=== PATIENT | male | born 1945 | race Caucasian/White ===

== ENCOUNTER 2017-10-26 06:00 | Outpatient (CLI) | payer OTHER ==
[~2017-10-26] VITALS: Ht 182.9 cm; Wt 98.9 kg
[2017-10-26] MEDS ORDERED: METO-333 PO (13:08)
[2017-10-26] MEDS ORDERED: IPRA4AER IH (13:08)
[2017-10-26] MEDS ORDERED: CLOP75TA28 PO (13:08)
[2017-10-26] MEDS ORDERED: DEXT15CA28 PO (13:08)
[2017-10-26] MEDS ORDERED: INSU100I29 SQ (13:08)
[2017-10-26] MEDS ORDERED: AMLO10TA2 PO (13:08)
[2017-10-26] MEDS ORDERED: INSU100I14 SQ (13:08)
[2017-10-26] MEDS ORDERED: ISOS20TA73 PO (13:08)
[2017-10-26] MEDS ORDERED: PARO40TA3 PO (13:08)
[2017-10-26] MEDS ORDERED: CHOL10003 PO (13:08)
[2017-10-26] MEDS ORDERED: FURO40TA4 PO (13:08)
[2017-10-26] MEDS ORDERED: FERR324T4 PO (13:08)
[2017-10-26] MEDS ORDERED: ASPI-586 PO (13:08)
[2017-10-30] MEDS ORDERED: ACHD5005 PO (15:11)
== END 2017-10-26 13:31 ==
LOC: PREOP 06:00
PROVIDERS: ATTEND Surgery
DX: Z01.818 Encounter for other preprocedural examination (principal)

== ENCOUNTER 2017-10-30 11:58 | Day surgery (SDC) | payer OTHER ==
[~2017-10-30] VITALS: Ht 182.9 cm; Wt 98.9 kg
[~2017-10-30 11:58] MED LIST: AMLO10TA2 PO; ASPI-586 PO; CHOL10003 PO; CLOP75TA28 PO; DEXT15CA28 PO; FERR324T4 PO; FURO40TA4 PO; INSU100I14 SQ; INSU100I29 SQ; IPRA4AER IH; ISOS20TA73 PO; METO-333 PO; PARO40TA3 PO
--- OUTSIDE RECORDS SUMMARY | 2017-10-30 12:02 | XMS REPORT | Referral Summary ---
Author Author [facility] Organization [facility] Address Unknown Phone Unavailable Care Team Providers Care Stacker Name Role Phone [facility] PCP Unavailable Encounter [facility] [id number] Date(s): 10/05/17 - 10/05/17 [facility] [address] [facility] [place] [address] Discharge Disposition: 01-Home or Self Care Attending Physician: Steven Boswell MD Admitting Physician: Steven Boswell MD Referring Physician: [facility] Vital Signs No data available for this section Problem List No data available for this section Allergies, Adverse Reactions, Alerts No Known Allergies Medications albuterol 0 Refill(s) Start Date: 10/05/17 Status: Ordered amLODIPine 10 mg oral tablet mg tabs, Oral, Daily, 0 Refill(s) Start Date: 10/05/17 Status: Ordered aspirin 0 Refill(s) Start Date: 10/05/17 Status: Ordered carboxymethylcellulose 0 Refill(s) Start Date: 10/05/17 Status: Ordered cholecalciferol 0 Refill(s) Start Date: 10/05/17 Status: Ordered cloNIDine 0 Refill(s) Start Date: 10/05/17 Status: Ordered clopidogrel 75 mg oral tablet 75 mg 1 tabs, Oral, Daily, # 30 tabs, 0 Refill(s) Start Date: 10/05/17 Status: Ordered docusate sodium 100 mg oral tablet mg tabs, Oral, BID, 0 Refill(s) Start Date: 10/05/17 Status: Ordered ferrous sulfate 325 mg (65 mg elemental iron) oral tablet mg tabs, Oral, TID, 0 Refill(s) Start Date: 10/05/17 Status: Ordered furosemide 40 mg oral tablet mg tabs, Oral, Daily, 0 Refill(s) Start Date: 10/05/17 Status: Ordered glucose 4 g oral tablet, chewable 16 g 4 tabs, Chewed, Once, as needed for low blood sugar, # 50 tabs, 0 Refill(s) Start Date: 10/05/17 Status: Ordered insulin aspart 100 units/mL injectable solution SubCutaneous, TIDAC, 0 Refill(s) Start Date: 10/05/17 Status: Ordered insulin detemir 100 units/mL subcutaneous solution SubCutaneous, 0 Refill(s) Start Date: 10/05/17 Status: Ordered isosorbide mononitrate 30 mg oral tablet, extended release mg tabs, Oral, qAM, 0 Refill(s) Start Date: 10/05/17 Status: Ordered metoprolol tartrate 25 mg oral tablet mg tabs, Oral, BID, 0 Refill(s) Start Date: 10/05/17 Status: Ordered nitroglycerin 0.4 mg sublingual spray mg sprays, SubLingual, q5min, 0 Refill(s) Start Date: 10/05/17 Status: Ordered PARoxetine 40 mg oral tablet mg tabs, Oral, Daily, 0 Refill(s) Start Date: 10/05/17 Status: Ordered polyethylene glycol 3350 g, Oral, Daily, 0 Refill(s) Start Date: 10/05/17 Status: Ordered rosuvastatin 20 mg oral tablet mg tabs, Oral, Bedtime (once a day), 0 Refill(s) Start Date: 10/05/17 Status: Ordered sevelamer carbonate 0.8 g oral powder for reconstitution Oral, 0 Refill(s) Start Date: 10/05/17 Status: Ordered Results No data available for this section Immunizations No data available for this section Procedures Procedure Date Related Diagnosis Body Site Status Tonsillectomy and adenoidectomy 1950 Completed Social History Social History Type Response Smoking Status Never (less than 100 in lifetime) entered on: 10/05/17 Assessment and Plan No data available for this section
[2017-10-30 12:03] VITALS: BP 167/80
[2017-10-30] MEDS ORDERED: ceFAZolin 2 GM IV Premixed 50 ML IV ONE (12:15)
[2017-10-30] MEDS: LACTATED RINGERS 1,000 ML IV PRN ×2 (12:20→14:20)
[2017-10-30 12:42] LABS: CALCIUM 9.1 MG/DL (8.5-10.1); CREATININE SERUM 3.36 MG/DL (0.60-1.30); POTASSIUM 4.7 MMOL/L (3.6-5.0)
[2017-10-30] MEDS ORDERED: HEParin (CENTRAL IV FLUSH) 500 UNIT/5 ML SYR ONE (12:52)
[2017-10-30] MEDS ORDERED: BUP/EPI 0.5% 1:200,000 (SENSORCAINE) 30 ML VIAL ONE (12:52)
[2017-10-30] MEDS ORDERED: 0.9% SODIUM CHLORIDE PF INJ 20 ML VIAL ONE (12:52)
--- NOTE | 2017-10-30 13:15 | Progress Note-Pre Operative ---
Pre-Operative Progress Note H&P Reviewed The H&P was reviewed, patient examined and no changes noted. Date Seen by Provider: Oct 30, 2017 Time Seen by Provider: 13:14 Date H&P Reviewed: Oct 30, 2017 Time H&P Reviewed: 13:14 Pre-Operative Diagnosis: Carcinoma of tongue DANO ANGUIANO MD Oct 30, 2017 1:15 pm
[2017-10-30] MEDS ORDERED: fentaNYL INJECTION 100 MCG/2 ML AMP ONE (13:25)
[2017-10-30] MEDS ORDERED: ATRACURIUM 50 MG/5 ML (TRACRIUM) IV ONE ×2 (13:30→15:09)
[2017-10-30] MEDS ORDERED: MIDAZOLAM 2 MG/2 ML (VERSED) VIAL ONE (13:36)
[2017-10-30] MEDS ORDERED: ONDANSETRON 4 MG/2 ML (SDV) Z0FRAN ONE (14:44)
[2017-10-30] MEDS ORDERED: LIDOCAINE PF 2% 5 ML (XYLOCAINE) VIAL ONE (14:44)
[2017-10-30] MEDS ORDERED: NEOSTIGMINE 1 MG/ML 5 ML SYRINGE ONE (14:44)
[2017-10-30] MEDS ORDERED: proPOfol 200 MG/20 ML (DIPRIVAN) VIAL IV ONE (14:44)
[2017-10-30] MEDS ORDERED: GLYCOPYRROLATE 0.2 MG/ML (ROBINUL) 2 ML VIAL ONE (14:44)
[2017-10-30] MEDS ORDERED: SEVOFLURANE (ULTANE) 15 ML INHAL SOLN ONE (15:10)
--- NOTE | 2017-10-30 15:10 | Operative Report ---
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 To facilitate this, placing an Wmeqyb-f-Awbb and PEG tube to promote enteral nutrition was felt to be reasonable. Informed consent was obtained after reviewing the details of the procedures and complications of hematoma, bacteremia and malfunction of the catheter, requiring replacement. Description of the procedures: 1. Abcjqw-y-Gzho placement: He was placed supine on the operating table and general anesthesia induced using an endotracheal tube. Ancef was administered intravenously as prophylaxis against wound infection. Sequential compression devices were placed around his legs, to minimize the risk of venous thrombosis. His neck and upper chest were prepared and draped in the usual sterile manner. Right internal jugular vein was localized using a 12 megahertz ultrasound probe and a floppy guidewire introduced into the heart, under fluoroscopy. A subcutaneous pocket was created over the infraclavicular fossa and the Jass catheter brought into the neck, in a retrograde fashion. It was then advanced into the heart, under fluoroscopy, using the peel-away sheath. The catheter was pulled back to the superior vena cava under fluoroscopy and connected to the Ninnri-j-Xydv, that had been primed with heparinized saline. I was able to aspirate and flush the system without any difficulty. The port was then secured to the pectoralis tissue using 2-0 Prolene sutures. The incision was then closed using 3-0 Vicryl for the cutaneous tissue and 4-0 Vicryl for skin, in a subcuticular fashion. 0.5 percent Marcaine with epinephrine was infiltrated along the incision preemptively. A sterile dressing was then applied. 2. PEG tube placement: His anterior abdominal wall was prepared and draped in the usual sterile manner. Flexible gastroscopy was performed and by indentation on the anterior abdominal wall, combined with transillumination, a guidewire was introduced into the distal stomach under direct gastroscopic view. It was snared and brought out of the oral cavity. A 20 Kazakh PEG tube was connected to the guidewire, that was then railroaded back into the stomach. Gastroscopy was repeated to confirm satisfactory placement of the flange of the PEG tube. The adapter was then connected to the PEG tube and a dressing applied. He tolerated the procedures well, was extubated in the operating room and taken to the recovery room in a stable condition. Findings of the Procedure See op report Allergies and Home Medications Allergies Coded Allergies: niacin (Verified Allergy, Unknown, RASH, 10/26/17) Home Medications Albuterol/Ipratropium 4 Gm Aero, 1 PUFF IH QID, (Reported) Amlodipine Besylate 10 Mg Tablet, 5 MG PO DAILY, (Reported) Aspirin 81 Mg Tablet.dr, 81 MG PO DAILY, (Reported) Cholecalciferol (Vitamin D3) 1,000 Unit Tablet, 2,000 UNIT PO BID, (Reported) Clopidogrel Bisulfate 75 Mg Tablet, 75 MG PO DAILY, (Reported) Dextromethorphan HBr 15 Mg Capsule, 15 MG PO HS, (Reported) Ferrous Sulfate 324 Mg Tablet.dr, 324 MG PO BID, (Reported) Furosemide 40 Mg Tablet, 40 MG PO BID, (Reported) Insulin Aspart 300 Units/3 Ml Solution, 15 UNITS SQ AC, (Reported) Insulin Detemir 100 Unit/1 Ml Insuln.pen, 15 UNIT SQ BID, (Reported) Isosorbide Mononitrate 20 Mg Tablet, 20 MG PO DAILY, (Reported) Metoprolol Tartrate 25 Mg Tablet, 12.5 MG PO BID, (Reported) Paroxetine HCl 40 Mg Tablet, 20 MG PO DAILY, (Reported) Patient Home Medication List Home Medication List Reviewed: Yes DANO ANGUIANO MD Oct 30, 2017 3:10 pm
[2017-10-30] MEDS ORDERED: ACHD5005 PO ×2 (15:11)
--- NOTE | 2017-10-30 15:12 | Discharge Inst-Simple/Standard ---
Discharge Inst-Standard Discharge Medications New, Converted or Re-Newed RX: RX on Chart Patient Instructions/Follow Up Plan of Care/Instructions/FU: Band-Aids off in 48 hours. May use the port. Fresh PEG tube with 10 mL of sterile water twice a day. May be used for feeding starting tomorrow. Activity as Tolerated: Yes Discharge Diet: No Restrictions DANO ANGUIANO MD Oct 30, 2017 3:12 pm
[2017-10-30] MEDS ORDERED: morphine INJ 10 MG/ML 1ML (SYR OR VIAL) IVP PRN (15:15)
[2017-10-30] MEDS ORDERED: ONDANSETRON 4 MG/2 ML (SDV) Z0FRAN IVP PRN (15:15)
[2017-10-30 15:45] VITALS: BP 160/68
--- NOTE | 2017-10-30 15:45 | Anesthesia-General Post-Op ---
General Patient Condition Mental Status/LOC: Same as Preop Cardiovascular: Satisfactory Nausea/Vomiting: Absent Respiratory: Satisfactory Pain: Controlled Complications: Absent Post Op Complications Complications None Follow Up Care/Instructions Patient Instructions None needed. Anesthesia/Patient Condition Patient Condition Patient is doing well, no complaints, stable vital signs, no apparent adverse anesthesia problems. DYLLAN BARNARD DO Oct 30, 2017 15:45
[2017-10-30 16:15] VITALS: BP 169/72
--- NOTE | 2017-10-30 16:33 | Diagnostic Imaging Report ---
INDICATION: Port-A-Cath placement. COMPARISON: None. FINDINGS: Two intraoperative image intensifier views of the chest were obtained during Port-A-Cath placement. Images provided show right internal jugular venous approach. Distal tip of the Port-A-Cath appears to terminate within the right atrium. Please note, interpreting radiologist was not present during the procedure. Evaluation for pneumothorax is suboptimal secondary to fluoroscopic modality. IMPRESSION: 1. Fluoroscopic guidance provided during Port-A-Cath placement. Dictated by: Dictated on workstation # [id number]
[2017-10-30 17:15] VITALS: BP 164/70
[2017-10-30 17:38] VITALS: BP 164/70
== END 2017-10-30 17:38 | disposition home or self-care (01) ==
LOC: SDC 11:58
PROVIDERS: ATTEND Surgery
DX: C01 Malignant neoplasm of base of tongue (principal); I25.10 Atherosclerotic heart disease of native coronary artery without angina pectoris; I10 Essential (primary) hypertension; E11.9 Type 2 diabetes mellitus without complications; G47.33 Obstructive sleep apnea (adult) (pediatric); Z95.1 Presence of aortocoronary bypass graft; Z95.5 Presence of coronary angioplasty implant and graft; Z79.02 Long term (current) use of antithrombotics/antiplatelets; Z79.82 Long term (current) use of aspirin; Z79.4 Long term (current) use of insulin; Z79.899 Other long term (current) drug therapy
CPT/HCPCS: 36415; 80048; 87081

== ENCOUNTER → 2017-10-31 | Outpatient (CLI) | payer OTHER ==
[~2017-10-31] MED LIST changes: +ACHD5005 PO
--- NOTE | 2017-10-31 13:43 | Diagnostic Imaging Report ---
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 TECHNIQUE: Serum blood glucose level at the time of injection is 122 mg/dL. Patient was administered 11.2 mCi of F-18 FDG intravenously in the left antecubital location and PET imaging was performed from the top of the skull through mid thighs. Noncontrast CT was also performed for attenuation correction and anatomic correlation. COMPARISON: No prior studies are available for comparison. FINDINGS: There is symmetric activity identified throughout the brain. Intense hypermetabolism is identified at the base of the tongue in the midline/left paramidline location. SUV max is approximately 9.5. Soft tissue mass-like density at this location measures approximately 3.5 cm AP x 3.6 cm transverse. No associated hypermetabolic neck lymph nodes are visualized. There are postsurgical changes in the right neck. Moderate amount of subcutaneous gas is present. Patient reportedly had a recent lymph node biopsy and Wyzihb-L-Vzes central line catheter placement. Imaging through the chest is without mediastinal or hilar hypermetabolism. No parenchymal hypermetabolism is seen. There is airspace infiltrate identified in the left lower lobe, suggestive of pneumonia. Physiologic activity within the GI and tracts is seen. No suspicious hypermetabolism in the abdomen or pelvis is identified. IMPRESSION: 1. Hypermetabolic mass at the base of the tongue, correlating with patient's known primary neoplasm. No definite cervical hypermetabolism is seen to suggest metastatic disease. There are postsurgical changes in the right neck. 2. Airspace infiltrate in the left lower lobe, suggestive of pneumonia. No definite chest, abdomen, or pelvis hypermetabolism is seen to suggest metastatic disease. Dictated by: Dictated on workstation # [id number]
== END ==
LOC: RAD 10:07
PROVIDERS: ATTEND Nurse Practitioner Family
DX: C01 Malignant neoplasm of base of tongue (principal); C77.9 Secondary and unspecified malignant neoplasm of lymph node, unspecified; R91.8 Other nonspecific abnormal finding of lung field

== ENCOUNTER 2017-11-15 08:54 | Outpatient (CLI) | payer OTHER ==
[~2017-11-15] VITALS: Ht 182.9 cm; Wt 98.9 kg
[2017-11-15 09:00] VITALS: BP 123/78
[2017-11-15] MEDS ORDERED: LIDOCAINE 1% INJ 20 ML 20 ML VIAL ONE (09:55)
[2017-11-15] MEDS ORDERED: HYDROcodone/APAP 7.5 MG/325 MG (LORTAB, LORCET PLUS) TABLET PO ONE ×2 (09:57→10:15)
--- NOTE | 2017-11-15 10:11 | Progress Note-Post Operative ---
Post-Operative Progess Note Surgeon (s)/Halftone Operator (s) Surgeon GENARO MACHADO MD Halftone Operator: none Pre-Operative Diagnosis Carcinoma of tongue, malfunctioning gastrostomy tube. Post-Operative Diagnosis same Procedure & Operative Findings Date of Procedure 11/15/17 Procedure Performed/Findings removal replacement gastrostomy tube. Anesthesia Type local Estimated Blood Loss Estimated blood loss (mL): minimal Specimens/Packing Specimens Removed none GENARO MACHADO MD Nov 15, 2017 10:11
[2017-11-15] MEDS ORDERED: LIDOCAINE 1% INJ 20 ML 20 ML VIAL INJ ONE (10:15)
--- NOTE | 2017-11-16 06:08 | HISTORY AND PHYSICAL ---
DATE OF SERVICE: 11/15/2017 ATTENDING PRIMARY CARE PHYSICIAN: Dr. Reggie Randolph. HISTORY OF PRESENT ILLNESS: The patient is a 72-year-old male, who was found to have a lesion at the base of the tongue. This was biopsied and consistent with a squamous cell carcinoma. Due to location and characteristics of the lesion, he was seen by oncology with the recommendation to proceed with chemotherapy and radiation. He underwent placement of a Groshong implantable catheter on 10/30/2017, as well as a percutaneous endoscopic gastrostomy tube. He reports that he was cleaning around his gastrostomy tube today, did cough and inadvertently created a partial cut in the gastrostomy tube. The tube was otherwise working well. He will need removal and replacement of the gastrostomy tube. PAST MEDICAL HISTORY: Diabetes, hypertension, degenerative joint disease, hypercholesterolemia, and coronary artery disease. PAST SURGICAL HISTORY: Laparoscopic cholecystectomy, coronary artery bypass graft and hernia repair. ALLERGIES: NIACIN. MEDICATIONS: Lasix 40 mg daily, Levemir 15 units each day at bedtime, NovoLog insulin 15 units q.a.c. Paroxetine 20 mg daily, Plavix 75 mg daily, amlodipine 5 mg daily, aspirin 81 mg daily, iron 325 mg daily, isosorbide mononitrate 10 mg daily, metoprolol 25 mg daily, Combivent 20/100 mcg one puff q.i.d. SOCIAL HISTORY: Previous smoker, did drink alcohol on a daily basis, which was a few beers daily. FAMILY HISTORY: Father hypertension, mother and brother heart disease. REVIEW OF SYSTEMS: A well-nourished male in no acute distress. He is not experiencing any shortness of breath or difficulty breathing. No chest pain, palpitations or diaphoresis. No nausea or vomiting. He is able to swallow liquids and pills at this time as well as solids. No coffee-ground emesis and no hematemesis. No diarrhea or constipation. No red blood per rectum and no dark tarry stools. No fever or chills. No recent inadvertent weight loss. All other review of systems are negative. PHYSICAL EXAMINATION: VITAL SIGNS: Stable. Blood pressure 123/78, pulse 80, respirations 16 and pulse ox 98% on room air. CHEST: Clear. Distant breath sounds bilaterally. HEART: Regular, no murmurs. EXTREMITIES: No lower extremity edema and negative Homans sign. HEENT: No scleral icterus. NECK: No cervical lymphadenopathy. ABDOMEN: Soft, nontender, nondistended with a lacerated gastrostomy tube; however, no redness, erythema or signs of infection and functional. SKIN: Warm, dry. 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 He underwent an implantable catheter as well as a percutaneous endoscopic gastrostomy tube approximately three weeks ago. He caused an inadvertent cut to the gastrostomy tube, which will require removal and replacement, which we will proceed with. Job ID: [id number] DocumentID: [id number] Dictated Date: 11/15/2017 10:09:11 Management Liaison Date: 11/15/2017 11:47:25 Dictated By: GENARO MACHADO MD
== END 2017-11-15 10:40 | disposition home or self-care (01) ==
LOC: SDC 08:54
PROVIDERS: ATTEND Surgery
DX: Z01.818 Encounter for other preprocedural examination (principal); K94.23 Gastrostomy malfunction

== ENCOUNTER 2018-01-03 13:31 | Outpatient (RCR) | payer OTHER ==
[2017-11-06 13:08] LABS: BASOPHILS % (AUTO) 1 % (0-10); EOSINOPHILS # (AUTO) 0.3 10^3/uL (0.0-0.3); EOSINOPHILS % (AUTO) 4 % (0-10); HEMATOCRIT 27 % (40-54); HEMOGLOBIN 8.9 G/DL (13.3-17.7); LYMPHOCYTES # (AUTO) 1.5 X 10^3 (1.0-4.0); LYMPHOCYTES % (AUTO) 18 % (12-44); MEAN CORPUSCULAR HEMOGLOBIN 27 PG (25-34); MEAN CORPUSCULAR HGB CONC 33 G/DL (32-36); MEAN CORPUSCULAR VOLUME 84 FL (80-99); MEAN PLATELET VOLUME 9.5 FL (7.4-10.4); MONOCYTES # (AUTO) 0.6 X 10^3 (0.0-1.0); MONOCYTES % (AUTO) 8 % (0-12); NEUTROPHILS # (AUTO) 5.7 X 10^3 (1.8-7.8); NEUTROPHILS % (AUTO) 70 % (42-75); PLATELET COUNT 359 10^3/uL (130-400); RED BLOOD COUNT 3.26 10^6/uL (4.35-5.85); RED CELL DISTRIBUTION WIDTH 14.8 % (10.0-14.5); WHITE BLOOD COUNT 8.1 10^3/uL (4.3-11.0)
[2017-11-06 13:26] LABS: ALANINE AMINOTRANSFERASE < 6 U/L (0-55); ALBUMIN 3.4 GM/DL (3.2-4.5); ALKALINE PHOSPHATASE 77 U/L (40-136); BILIRUBIN,TOTAL 0.3 MG/DL (0.1-1.0); BUN/CREATININE RATIO 14; CARBON DIOXIDE 21 MMOL/L (21-32); CHLORIDE 106 MMOL/L (98-107); CREATININE SERUM 3.29 MG/DL (0.60-1.30); GFR ESTIMATED 19; GLUCOSE 348 MG/DL (70-105); POTASSIUM 3.7 MMOL/L (3.6-5.0); SODIUM 137 MMOL/L (135-145); TOTAL PROTEIN 6.7 GM/DL (6.4-8.2)
[2017-11-17 15:06] LABS: BASOPHILS % (AUTO) 0 % (0-10); EOSINOPHILS # (AUTO) 0.4 10^3/uL (0.0-0.3); EOSINOPHILS % (AUTO) 4 % (0-10); HEMATOCRIT 28 % (40-54); LYMPHOCYTES # (AUTO) 0.9 X 10^3 (1.0-4.0); LYMPHOCYTES % (AUTO) 10 % (12-44); MEAN CORPUSCULAR HEMOGLOBIN 27 PG (25-34); MEAN CORPUSCULAR HGB CONC 32 G/DL (32-36); MEAN CORPUSCULAR VOLUME 84 FL (80-99); MEAN PLATELET VOLUME 9.3 FL (7.4-10.4); MONOCYTES # (AUTO) 0.8 X 10^3 (0.0-1.0); MONOCYTES % (AUTO) 9 % (0-12); NEUTROPHILS % (AUTO) 77 % (42-75); PLATELET COUNT 368 10^3/uL (130-400); RED BLOOD COUNT 3.35 10^6/uL (4.35-5.85); RED CELL DISTRIBUTION WIDTH 14.7 % (10.0-14.5); WHITE BLOOD COUNT 9.2 10^3/uL (4.3-11.0)
[2017-11-17 15:27] LABS: ALBUMIN 3.5 GM/DL (3.2-4.5); BILIRUBIN,TOTAL 0.3 MG/DL (0.1-1.0); CALCIUM 8.8 MG/DL (8.5-10.1); CREATININE SERUM 3.38 MG/DL (0.60-1.30); MAGNESIUM 1.7 MG/DL (1.8-2.4); POTASSIUM 3.9 MMOL/L (3.6-5.0); TOTAL PROTEIN 6.5 GM/DL (6.4-8.2)
[2017-12-06 08:17] LABS: BASOPHILS % (AUTO) 1 % (0-10); EOSINOPHILS # (AUTO) 0.4 10^3/uL (0.0-0.3); EOSINOPHILS % (AUTO) 5 % (0-10); HEMATOCRIT 29 % (40-54); LYMPHOCYTES # (AUTO) 0.9 X 10^3 (1.0-4.0); LYMPHOCYTES % (AUTO) 11 % (12-44); MEAN CORPUSCULAR HEMOGLOBIN 27 PG (25-34); MEAN CORPUSCULAR HGB CONC 31 G/DL (32-36); MEAN CORPUSCULAR VOLUME 85 FL (80-99); MEAN PLATELET VOLUME 9.5 FL (7.4-10.4); MONOCYTES # (AUTO) 0.5 X 10^3 (0.0-1.0); MONOCYTES % (AUTO) 6 % (0-12); NEUTROPHILS % (AUTO) 77 % (42-75); PLATELET COUNT 355 10^3/uL (130-400); RED BLOOD COUNT 3.38 10^6/uL (4.35-5.85); RED CELL DISTRIBUTION WIDTH 14.5 % (10.0-14.5); WHITE BLOOD COUNT 7.8 10^3/uL (4.3-11.0)
[2017-12-06 08:35] LABS: BILIRUBIN,TOTAL 0.3 MG/DL (0.1-1.0); CREATININE SERUM 3.19 MG/DL (0.60-1.30); MAGNESIUM 1.7 MG/DL (1.8-2.4); TOTAL PROTEIN 6.5 GM/DL (6.4-8.2)
[2017-12-20 08:44] LABS: BASOPHILS % (AUTO) 1 % (0-10); EOSINOPHILS # (AUTO) 0.4 10^3/uL (0.0-0.3); EOSINOPHILS % (AUTO) 6 % (0-10); HEMATOCRIT 30 % (40-54); HEMOGLOBIN 9.2 G/DL (13.3-17.7); LYMPHOCYTES # (AUTO) 0.6 X 10^3 (1.0-4.0); LYMPHOCYTES % (AUTO) 8 % (12-44); MEAN CORPUSCULAR HEMOGLOBIN 27 PG (25-34); MEAN CORPUSCULAR HGB CONC 31 G/DL (32-36); MEAN CORPUSCULAR VOLUME 86 FL (80-99); MEAN PLATELET VOLUME 9.7 FL (7.4-10.4); MONOCYTES # (AUTO) 0.7 X 10^3 (0.0-1.0); MONOCYTES % (AUTO) 10 % (0-12); NEUTROPHILS # (AUTO) 5.4 X 10^3 (1.8-7.8); NEUTROPHILS % (AUTO) 76 % (42-75); PLATELET COUNT 305 10^3/uL (130-400); RED BLOOD COUNT 3.46 10^6/uL (4.35-5.85); RED CELL DISTRIBUTION WIDTH 15.2 % (10.0-14.5); WHITE BLOOD COUNT 7.1 10^3/uL (4.3-11.0)
[2017-12-20 09:04] LABS: ALBUMIN 3.1 GM/DL (3.2-4.5); BILIRUBIN,TOTAL 0.4 MG/DL (0.1-1.0); CALCIUM 8.9 MG/DL (8.5-10.1); CREATININE SERUM 3.32 MG/DL (0.60-1.30); MAGNESIUM 1.3 MG/DL (1.8-2.4); POTASSIUM 4.9 MMOL/L (3.6-5.0); TOTAL PROTEIN 6.5 GM/DL (6.4-8.2)
[~2018-01-03] VITALS: Ht 182.9 cm; Wt 93.0 kg
[~2018-01-03 13:31] MED LIST changes: -AMLO10TA2 PO; +AMLO10TA6 PO; +NS IV 500 ML (CANCER CENTER) IV SCH; +PANITUMUMAB IV SCH; +[UNRECOGNIZED DRUG - OTHER] IV SCH
[2018-01-03 13:51] LABS: BASOPHILS % (AUTO) 1 % (0-10); EOSINOPHILS # (AUTO) 0.3 10^3/uL (0.0-0.3); EOSINOPHILS % (AUTO) 4 % (0-10); HEMATOCRIT 31 % (40-54); HEMOGLOBIN 9.9 G/DL (13.3-17.7); LYMPHOCYTES # (AUTO) 0.7 X 10^3 (1.0-4.0); LYMPHOCYTES % (AUTO) 10 % (12-44); MEAN CORPUSCULAR HEMOGLOBIN 27 PG (25-34); MEAN CORPUSCULAR HGB CONC 32 G/DL (32-36); MEAN CORPUSCULAR VOLUME 84 FL (80-99); MEAN PLATELET VOLUME 9.6 FL (7.4-10.4); MONOCYTES # (AUTO) 0.5 X 10^3 (0.0-1.0); MONOCYTES % (AUTO) 7 % (0-12); NEUTROPHILS # (AUTO) 5.7 X 10^3 (1.8-7.8); NEUTROPHILS % (AUTO) 79 % (42-75); PLATELET COUNT 405 10^3/uL (130-400); RED BLOOD COUNT 3.67 10^6/uL (4.35-5.85); RED CELL DISTRIBUTION WIDTH 15.3 % (10.0-14.5); WHITE BLOOD COUNT 7.2 10^3/uL (4.3-11.0)
[2018-01-03 14:14] LABS: ALBUMIN 3.2 GM/DL (3.2-4.5); BILIRUBIN,TOTAL 0.3 MG/DL (0.1-1.0); CALCIUM 9.5 MG/DL (8.5-10.1); CREATININE SERUM 3.16 MG/DL (0.60-1.30); MAGNESIUM 1.5 MG/DL (1.8-2.4); POTASSIUM 4.6 MMOL/L (3.6-5.0)
== END 2018-01-18 | disposition home or self-care (01) ==
LOC: ONC 13:31
PROVIDERS: ATTEND Internal Medicine Hematology & Oncology
DX: Z51.0 Encounter for antineoplastic radiation therapy (principal); Z51.11 Encounter for antineoplastic chemotherapy; C01 Malignant neoplasm of base of tongue; C77.0 Secondary and unspecified malignant neoplasm of lymph nodes of head, face and neck; R91.8 Other nonspecific abnormal finding of lung field; I25.10 Atherosclerotic heart disease of native coronary artery without angina pectoris; I10 Essential (primary) hypertension; E11.9 Type 2 diabetes mellitus without complications; G47.33 Obstructive sleep apnea (adult) (pediatric); Z95.1 Presence of aortocoronary bypass graft; Z95.5 Presence of coronary angioplasty implant and graft; Z79.02 Long term (current) use of antithrombotics/antiplatelets; Z79.82 Long term (current) use of aspirin; Z79.4 Long term (current) use of insulin; Z79.899 Other long term (current) drug therapy
CPT/HCPCS: 36415; 36591; 77300; 77301; 77334; 77336; 77338; 77386; 80053; 83735; 85025; 96413; 99213; 99214

== ENCOUNTER → 2018-03-09 | Outpatient (CLI) | payer OTHER ==
[~2018-03-09] MED LIST changes: -NS IV 500 ML (CANCER CENTER) IV SCH; -PANITUMUMAB IV SCH; -[UNRECOGNIZED DRUG - OTHER] IV SCH
--- NOTE | 2018-03-09 12:34 | Diagnostic Imaging Report ---
CLINICAL INDICATION: Patient with history of tongue cancer. 9 weeks ago finished treatment. EXAM: Axial CT scan of the brain performed without IV contrast. Exam was performed without IV contrast due to lab values. COMPARISON: None. FINDINGS: There is no evidence of acute cerebral infarct, intracranial hemorrhage, or gross mass effect. The brain parenchymal volume appears appropriate for patient's age. There are subtle confluent and patchy areas of low-attenuation white matter changes involving both cerebral hemispheres, likely representing mild chronic small vessel ischemic disease. There is normal herbert-white matter distinction. There is no significant midline shift or herniation. There is dense atherosclerotic disease involving the intradural vertebral artery and bilateral cavernous carotid arteries. There is no evidence of hydrocephalus. The basal cisterns are unremarkable. The skull, extracranial soft tissue, and orbits are unremarkable. There is a small mucus retention cyst or polyp in the left maxillary sinus and mild mucosal thickening involving the right maxillary sinus. Temporal bones show no significant abnormality. IMPRESSION: 1: There is no evidence of acute intracranial process. 2: Age-related brain parenchymal changes. 3: Mild paranasal sinus disease. Dictated by: Dictated on workstation # [id number]
--- NOTE | 2018-03-09 13:30 | Diagnostic Imaging Report ---
CLINICAL INDICATION: Patient with cancer of the tongue. Nine weeks ago patient finished treatment. EXAM: CT scan of the neck and chest performed without IV contrast. Coronal and sagittal reformatted images are created. No IV contrast was administered due to patient's lab values. COMPARISON: Whole body PET-CT scan dated 10/31/2017. FINDINGS: Neck CT: There is interval significant decreased size of the previously seen mass in the left posterior tongue base region. There is no measurable lesion seen. There is lobulated prominence of the posterior tongue base at the level of the epiglottis which may represent lingual tonsils and was noted on the prior study. There is also interval mild thickening of the oropharynx and aryepiglottic fold circumferential soft tissue which may be related to post-treatment changes. There is no measurable mass seen. There is at least moderate narrowing of the aerodigestive tract. Otherwise, the remainder of the neck soft tissues are unremarkable. There is no lymphadenopathy. The bilateral salivary glands are stable and unremarkable. Right IJ central line is again seen. Thyroid gland is unremarkable as visualized. There is atherosclerotic disease involving the bilateral carotid arteries again noted. There is cervical spine degenerative disease with vertebral body spurs and facet arthropathy. Limited visualization of the intracranial structures, orbits, and globes are unremarkable. There is a small amount of consolidation and air-fluid levels involving the bilateral mastoid process regions. There is a small mucus retention cyst or polyp in the left maxillary sinus. There is minimal mucosal thickening involving the right maxillary sinus. Chest CT: There is no mediastinal or hilar lymphadenopathy. There is atherosclerotic disease of the coronary arteries. The right IJ central line is seen with its tip in the cavoatrial junction region. There is no axillary lymphadenopathy. There is interval development of small bilateral pleural effusions (left side more than the right). There is patchy consolidation involving both lung bases (left side more than the right) which may represent lung infiltrate. There is no measurable lung mass seen. There is a development of a 3 mm nodule involving the lateral left lower lobe seen on series 4, image #30. Percutaneous gastrostomy tube is seen. The visualized upper abdominal structures show no other significant abnormality. There are degenerative spurs involving the thoracic spine. Sternotomy wires are seen. IMPRESSION: 1: There is interval significant decreased size of the previously seen left posterior tongue base mass with no residual measurable mass seen. This exam is limited since no IV contrast could be administered and complete resolution of this mass is difficult to determine. There is no neck lymphadenopathy. 2: Again seen prominence of the posterior tongue base soft tissue in the region of the lingual tonsils. This may just be related to hypertrophy of the lingual tonsils and this area should be closely followed on subsequent imaging. 3: There is interval development of mucosal thickening involving the oropharynx and aryepiglottic fold region which may be from post-treatment changes. There is moderate narrowing of the aerodigestive tract in this region. 4: There is no definite lung mass or developmental chest lymphadenopathy. 5: There is development of small bilateral pleural effusions and bibasilar airspace opacities which may represent pneumonia/lung infiltrates. 6: Again seen right IJ central line and gastrostomy tube. Dictated by: Dictated on workstation # [id number]
== END ==
LOC: RAD 11:08
PROVIDERS: ATTEND Internal Medicine Hematology & Oncology
DX: C02.9 Malignant neoplasm of tongue, unspecified (principal); N28.9 Disorder of kidney and ureter, unspecified; J90 Pleural effusion, not elsewhere classified; J32.8 Other chronic sinusitis; Z95.828 Presence of other vascular implants and grafts; Z93.1 Gastrostomy status
CPT/HCPCS: 70450; 70490; 71250

== ENCOUNTER 2018-04-02 05:39 | Outpatient (CLI) | payer OTHER ==
[~2018-04-02] VITALS: Ht 182.9 cm; Wt 94.3 kg
== END 2018-04-02 10:05 | disposition home or self-care (01) ==
LOC: PREOP 05:39
PROVIDERS: ATTEND Surgery
DX: Z01.818 Encounter for other preprocedural examination (principal)

== ENCOUNTER 2018-05-09 05:40 | Outpatient (CLI) | payer MEDICARE, OTHER ==
[~2018-05-09] VITALS: Ht 182.9 cm; Wt 94.3 kg
== END 2018-05-09 15:16 | disposition home or self-care (01) ==
LOC: PREOP 05:40
PROVIDERS: ATTEND Surgery
DX: Z01.818 Encounter for other preprocedural examination (principal)

== ENCOUNTER → 2018-07-05 | Outpatient (CLI) | payer MEDICARE, OTHER ==
[~2018-07-05] MED LIST changes: -AMLO10TA6 PO; +AMLO10TA7 PO
--- NOTE | 2018-07-05 11:27 | Diagnostic Imaging Report ---
CLINICAL INDICATION: Patient with head and neck cancer. No current treatment. Left-sided neck swelling. EXAM: Axial CT scan of the neck soft tissue performed without IV contrast with coronal and sagittal reformatted images. COMPARISON: CT scan of the neck and chest without contrast dated 03/09/2018. FINDINGS: There is progression of soft tissue thickening and swelling involving the bilateral aryepiglottic folds with narrowing of the larynx. There is soft tissue swelling and prominence of the oropharynx and posterior lingual soft tissue which has slightly reduced compared to the prior study. There is no measurable mass seen. There is no lymphadenopathy. Visualized portions of the anterior belly of the right digastric muscle has a different configuration to the left and is slightly more prominent. Otherwise, the sublingual and submandibular regions show no other significant abnormality. There is partial fatty replacement of the bilateral salivary glands. There is atherosclerotic disease involving the bilateral carotid arteries. Again seen partially visualized right IJ central line. Thyroid gland is unremarkable. There is thickening of the platysmas muscle bilaterally with adjacent fat stranding which has slightly progressed. Unknown if these changes are related to radiation treatment versus infectious or inflammatory cellulitis, but there is no lymph node seen. Visualized upper lung huertas are clear. The visualized intracranial structures show no gross abnormalities visualized. Orbits and globes are unremarkable. There is a small mucus retention cyst in the left maxillary sinus and minimal mucosal thickening involving right maxillary sinus. There is mild ethmoid sinus mucosal thickening. There is small amount of fluid and consolidation involving left mastoid air cells which is stable and minimal amount right mastoid air cells which is stable. There is cervical spine degenerative disease with vertebral body spurs and uncinate spurs and facet arthropathy. IMPRESSION: 1: There is interval progression of soft tissue swelling of aryepiglottic folds which cause narrowing of the larynx region. There is no measurable mass seen. 2: There is persistent soft tissue swelling/thickening involving the oropharynx which has decreased compared to the prior study. 3: There is progression of thickening of the platysmas muscle with adjacent subcutaneous fat stranding seen involving both sides of neck (left side more than the right). These findings are nonspecific and may be related to post treatment changes if patient has history of radiation treatment. Otherwise cellulitis should be excluded. There is no lymphadenopathy or evidence of abscess. 4: Stable nonspecific asymmetry of the anterior belly of the digastric muscles with the right side flattened and more prominent than the left side. Dictated by: Dictated on workstation # [id number]
== END ==
LOC: RAD 09:39
PROVIDERS: ATTEND Internal Medicine Hematology & Oncology
DX: C76.0 Malignant neoplasm of head, face and neck (principal); J38.6 Stenosis of larynx
CPT/HCPCS: 70490

== ENCOUNTER 2018-09-19 09:34 | Outpatient (RCR) | payer OTHER ==
[2018-07-05 09:37] LABS: BASOPHILS % (AUTO) 1 % (0-10); EOSINOPHILS # (AUTO) 0.2 10^3/uL (0.0-0.3); EOSINOPHILS % (AUTO) 2 % (0-10); HEMATOCRIT 35 % (40-54); HEMOGLOBIN 10.6 G/DL (13.3-17.7); LYMPHOCYTES # (AUTO) 0.6 X 10^3 (1.0-4.0); LYMPHOCYTES % (AUTO) 7 % (12-44); MEAN CORPUSCULAR HEMOGLOBIN 26 PG (25-34); MEAN CORPUSCULAR HGB CONC 30 G/DL (32-36); MEAN CORPUSCULAR VOLUME 84 FL (80-99); MEAN PLATELET VOLUME 10.5 FL (7.4-10.4); MONOCYTES # (AUTO) 0.6 X 10^3 (0.0-1.0); MONOCYTES % (AUTO) 8 % (0-12); NEUTROPHILS # (AUTO) 6.6 X 10^3 (1.8-7.8); NEUTROPHILS % (AUTO) 82 % (42-75); PLATELET COUNT 153 10^3/uL (130-400); RED CELL DISTRIBUTION WIDTH 17.9 % (10.0-14.5)
[2018-07-05 09:56] LABS: ALBUMIN 3.7 GM/DL (3.2-4.5); BILIRUBIN,TOTAL 1.1 MG/DL (0.1-1.0); CALCIUM 9.1 MG/DL (8.5-10.1); CREATININE SERUM 3.7 MG/DL (0.60-1.30); POTASSIUM 4.4 MMOL/L (3.6-5.0); TOTAL PROTEIN 6.6 GM/DL (6.4-8.2)
[2018-09-19 09:53] LABS: BASOPHILS # (AUTO) 0.1 10^3/uL (0.0-0.1); BASOPHILS % (AUTO) 1 % (0-10); EOSINOPHILS # (AUTO) 0.3 10^3/uL (0.0-0.3); EOSINOPHILS % (AUTO) 6 % (0-10); HEMATOCRIT 32 % (40-54); LYMPHOCYTES # (AUTO) 0.5 X 10^3 (1.0-4.0); LYMPHOCYTES % (AUTO) 12 % (12-44); MEAN CORPUSCULAR HEMOGLOBIN 27 PG (25-34); MEAN CORPUSCULAR HGB CONC 32 G/DL (32-36); MEAN CORPUSCULAR VOLUME 84 FL (80-99); MEAN PLATELET VOLUME 10.1 FL (7.4-10.4); MONOCYTES # (AUTO) 0.5 X 10^3 (0.0-1.0); MONOCYTES % (AUTO) 10 % (0-12); NEUTROPHILS # (AUTO) 3.2 X 10^3 (1.8-7.8); NEUTROPHILS % (AUTO) 71 % (42-75); PLATELET COUNT 222 10^3/uL (130-400); RED CELL DISTRIBUTION WIDTH 18.2 % (10.0-14.5); WHITE BLOOD COUNT 4.5 10^3/uL (4.3-11.0)
[2018-09-19 10:20] LABS: ALBUMIN 3.7 GM/DL (3.2-4.5); BILIRUBIN,TOTAL 0.6 MG/DL (0.1-1.0); CALCIUM 9.3 MG/DL (8.5-10.1); CREATININE SERUM 3.64 MG/DL (0.60-1.30); POTASSIUM 4.4 MMOL/L (3.6-5.0); TOTAL PROTEIN 6.4 GM/DL (6.4-8.2)
== END 2018-10-03 | disposition home or self-care (01) ==
LOC: ONC 09:34
PROVIDERS: ATTEND Internal Medicine Hematology & Oncology
DX: C01 Malignant neoplasm of base of tongue (principal); C77.0 Secondary and unspecified malignant neoplasm of lymph nodes of head, face and neck; R91.8 Other nonspecific abnormal finding of lung field; I25.10 Atherosclerotic heart disease of native coronary artery without angina pectoris; I10 Essential (primary) hypertension; E11.9 Type 2 diabetes mellitus without complications; G47.33 Obstructive sleep apnea (adult) (pediatric); Z95.1 Presence of aortocoronary bypass graft; Z95.5 Presence of coronary angioplasty implant and graft; Z79.02 Long term (current) use of antithrombotics/antiplatelets; Z79.82 Long term (current) use of aspirin; Z79.4 Long term (current) use of insulin; Z79.899 Other long term (current) drug therapy; Z45.2 Encounter for adjustment and management of vascular access device
CPT/HCPCS: 36591; 80053; 85025; 96523; 99213

== ENCOUNTER → 2019-02-14 | Outpatient (CLI) | payer OTHER ==
--- NOTE | 2019-02-14 13:45 | Diagnostic Imaging Report ---
INDICATION: Arthritis. COMPARISON: None. FINDINGS: AP view of the pelvis and two dedicated radiographic views of each hip were obtained. There is no fracture, dislocation, bone destruction, or radiopaque foreign body. Mild osteoarthritic changes of the bilateral femoroacetabular joint spaces is noted. The visualized pelvic osseous structures and the SI joints demonstrate no acute fracture or dislocation. There is no bone destruction or radiopaque foreign body. The surrounding soft tissue structures are unremarkable. IMPRESSION: 1. No acute fracture or dislocation in the pelvis or either hip. 2. 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 Dictated by: Dictated on workstation # [id number]
--- NOTE | 2019-02-14 13:52 | Diagnostic Imaging Report ---
INDICATION: Right shoulder pain. COMPARISON: None. FINDINGS: Three views of the right shoulder were obtained. There is no fracture, dislocation, or other acute bony abnormality identified. Note is made of soft tissue ossification within the expected location of the supraspinatus tendon. No radiopaque foreign bodies identified. The visualized portions of the right lung are clear. Right internal jugular Port-A-Cath is noted. IMPRESSION: 1. No acute fractures or dislocations of the right shoulder. 2. Findings suspicious for supraspinatus calcific tendinosis. Findings can be seen with underlying hydroxyapatite disease. Dictated by: Dictated on workstation # [id number]
== END ==
LOC: RAD 11:13
PROVIDERS: ATTEND Nurse Practitioner Family
DX: M16.0 Bilateral primary osteoarthritis of hip (principal); M25.511 Pain in right shoulder
CPT/HCPCS: 73030; 73523